=== PATIENT | female | born 1945 | race Caucasian/White ===

== ENCOUNTER 2016-12-01 00:15 | Emergency (ER) | payer MEDICARE, MEDICAID ==
--- NOTE | 2016-12-01 00:36 | EDM.PDOC ---
ED HPI GENERAL MEDICAL PROBLEM - General Stated Complaint: AMBULANCE Time Seen by Provider: 12/01/16 00:25 Source of Information: Reports: Patient, EMS History Limitations: Reports: No Limitations - History of Present Illness INITIAL COMMENTS - FREE TEXT/NARRATIVE: This 71 yo female patient was brought to the ED by [facility] due to a fall. The patient reports she has pain in her ear (pointing to left ear) and right side of her head. The patient reports she fell when she was walking. The patient does not believe she had any loss of consciousness. The staff at the [facility] did not know much health information or history information about this patient. Onset: Today, Sudden Quality: Reports: Ache Severity: Moderate Improves with: Reports: None Worsens with: Reports: None Associated Symptoms: Reports: No Other Symptoms - Related Data Allergies Allergy/AdvReac Type Severity Reaction Status Date / Time acetaminophen Allergy Nausea and Verified 12/01/16 00:30 Vomiting aspirin Allergy Bleeding Verified 12/01/16 00:30 Home Meds: Home Meds Docusate Sodium/Sennosides [Senna Plus] 1 - 2 tab PO DAILY PRN 01/29/16 [History ] Lisinopril [Lisinopril] 10 mg PO DAILY 01/29/16 [History] Cholecalciferol (Vitamin D3) [Vitamin D3] 1 tab PO DAILY 07/31/16 [History] Albuterol [Ventolin HFA] 2 inh INH Q6H PRN 12/01/16 [History] Alendronate Sodium [Fosamax] 1 tab PO Q7D 12/01/16 [History] Calcitonin,[place],Synthetic [Miacalcin] 1 spray NS DAILY 12/01/16 [History] Calcium Carbonate [Tums] 2 tab PO BID 12/01/16 [History] Flaxseed/Omega3,6,9/Fatty Acid [Flax Seed Oil 1,300 mg Softgel] 1 cap PO BID 09/14 [History] Gluc/Moreno-Msm#1/Vit C/Lv/Bor [Ksuldmp-Znrop-ATK Complex Cplt] 1 tab PO BID 09/14 [History] Melatonin 2 tab PO BEDTIME 12/01/16 [History] Potassium Chloride [Klor-Con M20] 1 tab PO BID 12/01/16 [History] Simethicone 1 tab PO ASDIRECTED PRN 12/01/16 [History] amLODIPine [Norvasc] 1 tab PO DAILY 12/01/16 [History] diphenhydrAMINE [Benadryl] 2 tab PO BEDTIME 12/01/16 [History] oxyCODONE HCl/Acetaminophen [Percocet 5-325 mg Tablet] 1 tab PO Q4H PRN [History] Past Medical History HEENT History: Reports: Cataract, Impaired Vision Other HEENT History: WEARS CORRECTIVE LENSES Cardiovascular History: Reports: Hypertension Respiratory History: Reports: COPD Gastrointestinal History: Reports: Chronic Constipation, Irritable Bowel Syndrome Genitourinary History: Reports: UTI, Recurrent 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: , 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 Musculoskeletal History: Reports: Back Pain, Chronic, Fracture, Osteoporosis, Other (See Below) Other Musculoskeletal History: FRACTURE OF CLAVICAL MULTIPLE TIMES Neurological History: Reports: None Psychiatric History: Reports: Depression Endocrine/Metabolic History: Reports: Hypothyroidism, Osteoporosis Hematologic History: Reports: Blood Transfusion(s) Immunologic History: Reports: None Oncologic (Cancer) History: Reports: None Dermatologic History: Reports: None - Infectious Disease History Infectious Disease History: Reports: Chicken Pox, Measles, Shingles - Past Surgical History HEENT Surgical History: Reports: Adenoidectomy, Cataract Surgery, Tonsillectomy Social & Family History - Family History Family Medical History: Noncontributory HEENT: Reports: Cataract, Impaired Vision, Macular Degeneration Cardiac: Reports: Hypertension, Prior Cardiac Arrest, Stent Respiratory: Reports: COPD GI: Reports: Chronic Constipation Other GI Family History: uses stool softners and suppliments to move bowels Musculoskeletal: Reports: Arthritis, Osteoporosis Neurological: Reports: None Psychiatric: Reports: Anxiety Endocrine/Metabolic: Reports: Hypothyroidism Immunologic: Reports: None Oncologic: Reports: Lung - Tobacco Use Smoking Status *Q: Former Smoker Used Tobacco, but Quit: Yes Month Tobacco Last Used: 07/2010 - Caffeine Use Caffeine Use: Reports: Coffee - Recreational Drug Use Recreational Drug Use: No ED ROS GENERAL - Review of Systems Review Of Systems: ROS reveals no pertinent complaints other than HPI. ED EXAM, GENERAL - Physical Exam Exam: See Below Exam Limited By: No Limitations General Appearance: Alert, WD/WN, Mild Distress, Thin Eye Exam: Bilateral Eye: EOMI, Normal Inspection, PERRL Ears: Normal External Exam, Normal Canal, Hearing Grossly Normal, Normal TMs Nose: Normal Inspection, Normal Mucosa, No Blood Throat/Mouth: Normal Inspection, Normal Lips, Normal Teeth, Normal Gums, Normal Oropharynx, Normal Voice, No Airway Compromise Head: Facial Tenderness (left ear tenderness), Other (right scalp tenderness) Neck: Normal Inspection, Supple, Limited Range of Motion (patient moans when moving neck) Respiratory/Chest: No Respiratory Distress, Lungs Clear, Normal Breath Sounds, No Accessory Muscle Use, Chest Non-Tender Cardiovascular: Normal Peripheral Pulses, Regular Rate, Rhythm, No Edema, No Gallop, No JVD, No Murmur, No Rub GI/Abdominal: Normal Bowel Sounds, Soft, Non-Tender, No Organomegaly, No Distention, No Abnormal Bruit, No Mass (Female) Exam: Deferred Rectal (Female) Exam: Deferred Extremities: Limited Range of Motion (the patient resisted movement of the left shoulder and left arm) Neurological: Alert, CN II-XII Intact, Normal Cognition Psychiatric: Flat Affect Skin Exam: Other (The patient has bruising to the left forearm, left upper arm and left shoulder (various stages of healing)) Lymphatic: No Adenopathy Course - Vital Signs Last Recorded V/S: Last Vital Signs Temp 36.3 C 12/01/16 00:20 Pulse 89 12/01/16 00:20 Resp 16 12/01/16 00:20 BP 135/55 L 12/01/16 00:20 Pulse Ox 94 L 12/01/16 00:20 - Orders/Labs/Meds Orders: Active Orders 24 hr Category Date Time Status CULTURE URINE [RM] Stat Lab 12/01/16 01:45 Ordered Labs: Laboratory Tests 12/01/16 12/01/16 12/01/16 Range/Units 01:05 01:05 01:30 WBC 12.0 H (5.0-10.0) 10^3/uL RBC 4.03 L (4.2-5.4) 10^6/uL Hgb 13.0 (12.0-16.0) g/dL Hct 38.7 (37.0-47.0) % MCV 96.0 (80-100) fL MCH 32.3 (27.0-34.0) pg MCHC 33.6 (33.0-35.0) g/dL Plt Count 265 (150-450) 10^3/uL Neut % (Auto) 79.6 H (42.2-75.2) % Lymph % (Auto) 9.7 L (20.5-50.1) % Gage % (Auto) 9.9 H (2-8) % Eos % (Auto) 0.6 L (1.0-3.0) % Baso % (Auto) 0.2 (0.0-1.0) % Sodium 135 (135-145) mmol/L Potassium 3.7 (3.6-5.0) mmol/L Chloride 98 L (101-111) mmol/L Carbon Dioxide 25.0 (21.0-31.0) mmol/L Anion Gap 15.7 BUN 26 H (7-18) mg/dL Creatinine 0.7 (0.6-1.3) mg/dL Est Cr Clr Drug Dosing 60.77 mL/min Estimated GFR (MDRD) > 60 BUN/Creatinine Ratio 37.14 Glucose 146 H (74-105) mg/dL Calcium 9.2 (8.4-10.2) mg/dl Total Bilirubin 0.8 (0.2-1.0) mg/dL AST 21 (10-42) IU/L ALT 24 (10-60) IU/L Alkaline Phosphatase 42 (42-121) IU/L Total Protein 7.2 (6.7-8.2) g/dl Albumin 4.1 (3.2-5.5) g/dl Globulin 3.1 Albumin/Globulin Ratio 1.32 Urine Color Yellow (YELLOW) Urine Appearance Slightly cloudy (CLEAR) Urine pH 5.5 (5.0-9.0) Ur Specific [place] 1.020 (1.005-1.030) Urine Protein 30 H (NEGATIVE) Urine Glucose (UA) 100 H (NEGATIVE) Urine Ketones Trace H (NEGATIVE) Urine Occult Blood Small H (NEGATIVE) Urine Nitrite Positive H (NEGATIVE) Urine Bilirubin Negative (NEGATIVE) Urine Urobilinogen 0.2 (0.2-1.0) mg/dL Ur Leukocyte Esterase Small H (NEGATIVE) Urine RBC 0-5 /HPF Urine WBC Packed H (0-5/HPF) /HPF Ur Epithelial Cells Few /HPF Urine Bacteria Many H (0-FEW/HPF) /HPF Urine Mucus Moderate H /LPF Meds: Medications Discontinued Medications Generic Name Dose Route Start Last Admin Trade Name Freq PRN Reason Stop Dose Admin Trimethoprim/Sulfamethoxazole 1 tab 12/01/16 01:46 Septra Ds PO 12/01/16 01:47 ONETIME ONE Departure - Departure Time of Disposition: 01:50 Disposition: Home, Self-Care 01 Condition: Fair Clinical Impression: Fall Qualifiers: Encounter type: initial encounter Qualified Code(s): W19.XXXA - Unspecified fall, initial encounter UTI (urinary tract infection) Qualifiers: Urinary tract infection type: site unspecified Hematuria presence: with hematuria Qualified Code(s): N39.0 - Urinary tract infection, site not specified ; R31.9 - Hematuria, unspecified - Discharge Information Instructions: Fall Prevention in the Home, [id number], Urinary Tract Infection, Adult, [id number] Care Plan Goals: The patient was advised of the examination, lab, CT and x-ray results during the visit. The patient was given an oral dose of Bactrim while in the ED. The patient was discharged with a dose of Bactrim to take at bedtime and a script for Bactrim DS to take 1 by mouth 2 times per day for 6 days. If the patient has any additional symptoms or concerns, the patient should follow-up with her primary care facility or return to the emergency department. - My Orders Last 24 Hours: My Active Orders 12/01/16 01:45 CULTURE URINE [RM] Stat - Assessment/Plan Last 24 Hours: My Active Orders 12/01/16 01:45 CULTURE URINE [RM] Stat
[2016-12-01 01:31] LABS: CHLORIDE,CL 98 mmol/L (101-111); SODIUM,NA 135 mmol/L (135-145)
[2016-12-01] MEDS ORDERED: Sulfamethoxazole/Trimethoprim 800-160 MG Tab PO ONE ×2 (01:46→01:57)
[2016-12-01 01:52] VITALS: BP 127/64
[2016-12-01] MEDS ORDERED: Sulfamethoxazole/Trimethoprim 800-160 MG Tab ONE (01:57)
== END 2016-12-01 02:15 | disposition home or self-care (01) ==
LOC: DL.ED 00:15
DX: N39.0 Urinary tract infection, site not specified (principal); R31.9 Hematuria, unspecified; M79.632 Pain in left forearm; M25.512 Pain in left shoulder; M79.622 Pain in left upper arm; R51 Headache; W19.XXXA Unspecified fall, initial encounter; Z79.899 Other long term (current) drug therapy; I10 Essential (primary) hypertension; J44.9 Chronic obstructive pulmonary disease, unspecified; K58.9 Irritable bowel syndrome, unspecified; F32.9 Major depressive disorder, single episode, unspecified; E03.9 Hypothyroidism, unspecified; M81.0 Age-related osteoporosis without current pathological fracture; Z88.6 Allergy status to analgesic agent; Z87.891 Personal history of nicotine dependence
CPT/HCPCS: 36415; 70450; 70486; 72125; 73030; 73060; 73090; 80053; 81001; 85025; 87086; 99285; A9270; 87088; 87186

== ENCOUNTER 2016-12-12 20:38 | Emergency (ER) | payer MEDICARE, MEDICAID ==
[2016-12-12] MEDS ORDERED: LORazepam 2 MG/ML Syringe IVPUSH ONE (21:14)
[2016-12-12] MEDS ORDERED: Sodium Chloride 0.9% 1,000 ML IV ONE ×2 (21:35→22:38)
--- NOTE | 2016-12-12 21:57 | EDM.PDOC ---
ED HPI GENERAL MEDICAL PROBLEM - General Chief Complaint: Behavioral/Psych Time Seen by Provider: 12/12/16 21:55 Source of Information: Reports: Other (medical assembly) History Limitations: Reports: Altered Mental Status - History of Present Illness INITIAL COMMENTS - FREE TEXT/NARRATIVE: odd-fellow medical assembly state Pt been paranoid and yelling at staff. 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 pt confused poor historian states she is in [facility] and all they do is to play games with her. - Related Data Allergies Allergy/AdvReac Type Severity Reaction Status Date / Time acetaminophen Allergy Nausea and Verified 12/12/16 21:03 Vomiting aspirin Allergy Bleeding Verified 12/12/16 21:03 Home Meds: Home Meds Docusate Sodium/Sennosides [Senna Plus] 1 - 2 tab PO DAILY PRN 01/29/16 [History ] Lisinopril [Lisinopril] 10 mg PO DAILY 01/29/16 [History] Cholecalciferol (Vitamin D3) [Vitamin D3] 1 tab PO DAILY 07/31/16 [History] Albuterol [Ventolin HFA] 2 inh INH Q6H PRN 12/01/16 [History] Calcitonin,[place],Synthetic [Miacalcin] 1 spray NS DAILY 12/01/16 [History] Calcium Carbonate [Tums] 2 tab PO BID 12/01/16 [History] Gluc/Moreno-Msm#1/Vit C/Lv/Bor [Thklrzl-Cyaru-ZYL Complex Cplt] 1 tab PO BID 09/14 [History] Melatonin 2 tab PO BEDTIME 12/01/16 [History] Simethicone 1 tab PO ASDIRECTED PRN 12/01/16 [History] amLODIPine [Norvasc] 1 tab PO DAILY 12/01/16 [History] oxyCODONE HCl/Acetaminophen [Percocet 5-325 mg Tablet] 1 tab PO Q4H PRN [History] QUEtiapine [SEROquel] 100 mg PO DAILY 12/12/16 [History] Past Medical History HEENT History: Reports: Cataract, Impaired Vision Other HEENT History: WEARS CORRECTIVE LENSES Cardiovascular History: Reports: Hypertension Respiratory History: Reports: COPD Gastrointestinal History: Reports: Chronic Constipation, Irritable Bowel Syndrome Genitourinary History: Reports: UTI, Recurrent 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: , 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 Musculoskeletal History: Reports: Back Pain, Chronic, Fracture, Osteoporosis, Other (See Below) Other Musculoskeletal History: FRACTURE OF CLAVICAL MULTIPLE TIMES Neurological History: Reports: None Psychiatric History: Reports: Bipolar, Depression Endocrine/Metabolic History: Reports: Hypothyroidism, Osteoporosis Hematologic History: Reports: Blood Transfusion(s) Immunologic History: Reports: None Oncologic (Cancer) History: Reports: None Dermatologic History: Reports: None - Infectious Disease History Infectious Disease History: Reports: Chicken Pox, Measles, Shingles - Past Surgical History Head Surgeries/Procedures: Reports: None HEENT Surgical History: Reports: Adenoidectomy, Cataract Surgery, Tonsillectomy Social & Family History - Family History Family Medical History: Noncontributory HEENT: Reports: Cataract, Impaired Vision, Macular Degeneration Cardiac: Reports: Hypertension, Prior Cardiac Arrest, Stent Respiratory: Reports: COPD GI: Reports: Chronic Constipation Other GI Family History: uses stool softners and suppliments to move bowels Musculoskeletal: Reports: Arthritis, Osteoporosis Neurological: Reports: None Psychiatric: Reports: Anxiety Endocrine/Metabolic: Reports: Hypothyroidism Immunologic: Reports: None Oncologic: Reports: Lung - Tobacco Use Smoking Status *Q: Former Smoker Used Tobacco, but Quit: No Month Tobacco Last Used: 07/2010 Second Hand Smoke Exposure: No - Caffeine Use Caffeine Use: Reports: Coffee - Recreational Drug Use Recreational Drug Use: No ED ROS GENERAL - Review of Systems Review Of Systems: ROS reveals no pertinent complaints other than HPI. ED EXAM, BEHAVIORAL HEALTH - Physical Exam Exam: See Below Exam Limited By: No Limitations General Appearance: Alert, WD/WN, Other (laying on side wants to be left alone.) Eye Exam: Bilateral Eye: PERRL (pupils ess ER @ 4mm) Ears: Hearing Grossly Normal Throat/Mouth: Normal Voice, No Airway Compromise Head: Atraumatic Neck: Non-Tender, Full Range of Motion Respiratory/Chest: No Respiratory Distress, Lungs Clear, Normal Breath Sounds Cardiovascular: Regular Rate, Rhythm GI/Abdominal: Soft, Non-Tender Neurological: Alert, No Motor/Sensory Deficits Psychiatric: Disoriented Skin Exam: Warm, Dry COURSE, BEHAVIORAL HEALTH COMP - Course Vital Signs: Last Vital Signs Temp 36.4 C 12/12/16 20:50 Pulse 77 12/12/16 22:45 Resp 14 12/12/16 22:45 BP 88/45 L 12/12/16 22:45 Pulse Ox 99 12/12/16 22:45 Orders, Labs, Meds: Active Orders 24 hr Category Date Time Status Sodium Chloride 0.9% [Normal Saline] 1,000 ml Med 12/12/16 22:38 Active IV .BOLUS Medication Orders Sodium Chloride (Normal Saline) 1,000 mls @ 250 mls/hr IV .BOLUS ONE Stop: 12/13/16 02:37 Last Admin: 12/12/16 22:44 Dose: 250 mls/hr Laboratory Tests 12/12/16 12/12/16 12/12/16 Range/Units 21:00 21:25 21:25 WBC 10.6 H (5.0-10.0) 10^3/uL RBC 3.83 L (4.2-5.4) 10^6/uL Hgb 12.3 (12.0-16.0) g/dL Hct 37.3 (37.0-47.0) % MCV 97.4 (80-100) fL MCH 32.1 (27.0-34.0) pg MCHC 33.0 (33.0-35.0) g/dL Plt Count 264 (150-450) 10^3/uL Sodium 137 (135-145) mmol/L Potassium 4.3 (3.6-5.0) mmol/L Chloride 102 (101-111) mmol/L Carbon Dioxide 25.0 (21.0-31.0) mmol/L Anion Gap 14.3 BUN 35 H (7-18) mg/dL Creatinine 1.1 (0.6-1.3) mg/dL Est Cr Clr Drug Dosing 34.18 mL/min Estimated GFR (MDRD) 49 BUN/Creatinine Ratio 31.81 Glucose 184 H (74-105) mg/dL Calcium 9.1 (8.4-10.2) mg/dl Total Bilirubin 0.4 (0.2-1.0) mg/dL AST 25 (10-42) IU/L ALT 21 (10-60) IU/L Alkaline Phosphatase 47 (42-121) IU/L Total Protein 6.6 L (6.7-8.2) g/dl Albumin 4.0 (3.2-5.5) g/dl Globulin 2.6 Albumin/Globulin Ratio 1.54 Urine Color Yellow (YELLOW) Urine Appearance Slightly cloudy (CLEAR) Urine pH 5.5 (5.0-9.0) Ur Specific [place] 1.020 (1.005-1.030) Urine Protein Negative (NEGATIVE) Urine Glucose (UA) 100 H (NEGATIVE) Urine Ketones Trace H (NEGATIVE) Urine Occult Blood Negative (NEGATIVE) Urine Nitrite Negative (NEGATIVE) Urine Bilirubin Negative (NEGATIVE) Urine Urobilinogen 0.2 (0.2-1.0) mg/dL Ur Leukocyte Esterase Trace H (NEGATIVE) Urine RBC 0-5 /HPF Urine WBC 20-30 H (0-5/HPF) /HPF Ur Epithelial Cells Many H /HPF Urine Bacteria Many H (0-FEW/HPF) /HPF Hyaline Casts Moderate H /LPF Urine Mucus Moderate H /LPF Medications Generic Name Dose Route Start Last Admin Trade Name Freq PRN Reason Stop Dose Admin Sodium Chloride 1,000 mls @ 250 mls/hr 12/12/16 22:38 12/12/16 22:44 Normal Saline IV 12/13/16 02:37 250 mls/hr .BOLUS ONE Administration Discontinued Medications Generic Name Dose Route Start Last Admin Trade Name Freq PRN Reason Stop Dose Admin Sodium Chloride 1,000 mls @ 999 mls/hr 12/12/16 21:35 12/12/16 21:38 Normal Saline IV 12/12/16 22:35 999 mls/hr .BOLUS ONE Administration Lorazepam 1 mg 12/12/16 21:14 12/12/16 21:31 Ativan IVPUSH 12/12/16 21:15 1 mg ONETIME ONE Administration Re-Assessment/Re-Exam: case discussed with Keyla @ [facility] who arrived and discussed with Dr Trejo @ [place] who kindly accepted Pt. Departure - Departure Time of Disposition: 00:03 Disposition: DC/Tfer to Psych Hosp/Unit 65 Condition: Good Clinical Impression: Hallucinations - Discharge Information Forms: Interfacility Transfer EMTALA - My Orders Last 24 Hours: My Active Orders 12/12/16 22:38 Sodium Chloride 0.9% [Normal Saline] 1,000 ml IV .BOLUS - Assessment/Plan Last 24 Hours: My Active Orders 12/12/16 22:38 Sodium Chloride 0.9% [Normal Saline] 1,000 ml IV .BOLUS
[2016-12-13 00:05] VITALS: BP 91/51
== END 2016-12-13 00:59 ==
LOC: DL.ED 20:38
DX: R44.3 Hallucinations, unspecified (principal); H54.7 Unspecified visual loss; I10 Essential (primary) hypertension; J44.9 Chronic obstructive pulmonary disease, unspecified; Z87.440 Personal history of urinary (tract) infections; F31.9 Bipolar disorder, unspecified; Z98.49 Cataract extraction status, unspecified eye; Z98.890 Other specified postprocedural states; Z88.8 Allergy status to other drugs, medicaments and biological substances; Z88.6 Allergy status to analgesic agent; Z79.899 Other long term (current) drug therapy; Z87.891 Personal history of nicotine dependence
CPT/HCPCS: 36415; 80053; 81001; 85027; 96361; 96374; 99285; J2060; J7030